=== PATIENT | male | born 1975 | race African-American/Black ===

== ENCOUNTER 2021-12-06 12:26 | Emergency (ER) | payer BC, OTHER ==
--- OUTSIDE RECORDS SUMMARY | 2021-12-06 12:30 | XMS REPORT | Continuity of Care Document ---
:1975 Author Organization [facility] t Address [address] [place] [id number] Care Team Providers Name Role Phone Pcp, Patient Does Not Have A Primary Care Physician [id number] CHRETIEN_F Attending Clinician Unavailable JOSE CRUZ Attending Clinician Unavailable Bhavani Wheeler Attending Clinician [phone] Jhoan Watts RN Attending Clinician Unavailable SCHALAURA_Russell Attending Clinician Unavailable Reena Stevenson Attending Clinician [phone] Naresh Sales MD Attending Clinician Maria Teresa Ricci Attending Clinician CHRETIEN_F Admitting Clinician Unavailable WATERS_Beverly Admitting Clinician Unavailable SCHALAURA_Russell Admitting Clinician Unavailable Payers Payer Name Policy Type Policy Number Effective Date Expiration Date Beverly rhoades AETNA O [id number] 2017 00:00:00 [place] [id number] 2021 00[place]00 [place] [id number] 2020 00:00:00 Problems This patient has no known problems. Allergies, Adverse Reactions, Alerts Allergy Allergy Status Severity Reaction(s) Onset Inactive Treating Comm ents Source Name Type Date Date Clinician NO KNOWN Drug Active Univers ALLERGIE Class ity of S [facility] Social History Social Habit Start Date Stop Date Quantity Comments Source History SDOH University o f Alcohol Frequency [place] [facility] History SDOH University o f Alcohol Std [place] [facility] Drinks Branch History SDOH University o f Alcohol Binge [place] [facility] Exposure to Not sure University SARS-CoV-2 [place] [facility] (event) Branch Alcohol intake 2020-01-08 2020-01-08 Current drinker of Un iversity of 00:00:00 00:00:00 alcohol (finding) [facility] edical [place] Alcohol Comment 2015-02-28 2015-02-28 occasionally Univers ity of 00:00:00 00:00:00 [facility] Tobacco use and 2015-02-28 2015-02-28 Current user Univers ity of exposure 00:00:00 00:00:00 [facility] Sex Ass[birth year] At [birth year] Universit y of 00:00:00 00:00:00 [facility] Smoking Status Start Date Stop Date Source Never smoker [facility] Medications Ordered Filled Start Stop Current Ordering Indication Dosage Frequency Signature Comments Components Source Medication Medication Date Date Medication? Clinician (SIG) Name Name HYDROcodone 2019-03 1{tbl} 1 tablet, Univers -acetaminop 0-13 10-13 Oral, ity of hen (NORCO 20:15: 19:11 ONCE, 1 Marcelino as 5) 5-325 mg 00 :00 dose, Tue Med ical tablet 1 01/06/20 Branch tablet at 1515, ALISE clindamycin 2019-03 450mg 450 mg, U nivers (CLEOCIN 0-13 10-13 Oral, ity of HCL) 20:15: 19:12 ONCE, 1 [place] capsule 450 00 :00 dose, Tue Med ical mg 01/06/20 Branch at 1515, ALISE
Re ason for Anti-Infec tive: Documented Infection< br>Documen yelena Infection Site: Skin / Soft Tissue
Duration of Therapy: Other (see Comments)< br>Restric yelena use approved by: ADC PROVIDER traMADoL 50 2019-03 Yes [id number] 50mg Take 1 Univ ers mg tablet 0-13 tablet by ity o f 00:00: mouth [place] 00 every 6 Medical (six) Branch hours as needed for Pain (scale 4-6). Indication s: acute pain traMADoL 50 2019-03 Yes [id number] 50mg Take 1 Univ ers mg tablet 0-13 tablet by ity o f 00:00: mouth [place] 00 every 6 Medical (six) Branch hours as needed for Pain (scale 4-6). Indication s: acute pain traMADoL 50 2019-03 Yes [id number] 50mg Take 1 Univ ers mg tablet 0-13 tablet by ity o f 00:00: mouth [place] 00 every 6 Medical (six) Branch hours as needed for Pain (scale 4-6). Indication s: acute pain clindamycin 2019-03- No [id number] 450mg Take 3 Univers 150 mg 0-13 10-24 capsules ity of capsule 00:00: 04:59 by mouth 3 Marcelino as 00 :00 (three) Medical times Branch daily for 10 days. clindamycin 2019-03- No [id number] 450mg Take 3 Univers 150 mg 0-13 10-24 capsules ity of capsule 00:00: 04:59 by mouth 3 Marcel[place] as 00 :00 (three) Medical times Branch daily for 10 days. glipiZIDE 5 2017-03 Yes glipizide U nivers mg tablet 1-20 5 mg ity of 19:32: tablet [place] 36 Take 1 Medical tablet Branch twice a day by oral route as directed for 30 days. lisinopril 2017-03 Yes lisinopril U nivers 20 mg 1-20 20 mg ity of tablet 19:32: tablet [place] 36 Take 1 Medical tablet Branch twice a day by oral route as directed for 30 days. glipiZIDE 5 2017-03 Yes glipizide U nivers mg tablet 1-20 5 mg ity of 19:32: tablet [place] 36 Take 1 Medical tablet Branch twice a day by oral route as directed for 30 days. lisinopril 2017-03 Yes lisinopril U nivers 20 mg 1-20 20 mg ity of tablet 19:32: tablet [place] 36 Take 1 Medical tablet Branch twice a day by oral route as directed for 30 days. lisinopril 2017-03 Yes lisinopril U nivers 20 mg 1-20 20 mg ity of tablet 13:32: tablet [place] 36 Take 1 Medical tablet Branch twice a day by oral route as directed for 30 days. glipiZIDE 5 2017-03 Yes glipizide U nivers mg tablet 1-20 5 mg ity of 13:32: tablet [place] 36 Take 1 Medical tablet Branch twice a day by oral route as directed for 30 days. methylPREDN 2017-03 Yes 84mg Take 21 Uni vers ISolone 1-20 tablets by ity of (MEDROL, 00:00: mouth [place] AIDA,) 4 mg 00 SEE-INSTRU Med ical tablets CTIONS. Branch follow package directions methylPREDN 2017-03 Yes 84mg Take 21 Uni vers ISolone 1-20 tablets by ity of (MEDROL, 00:00: mouth [place] AIDA,) 4 mg 00 SEE-INSTRU Med ical tablets CTIONS. Branch follow package directions methylPREDN 2017-03 Yes 84mg Take 21 Uni vers ISolone 1-20 tablets by ity of (MEDROL, 00:00: mouth [place] AIDA,) 4 mg 00 SEE-INSTRU Med ical tablets CTIONS. Branch follow package directions Vital Signs Vital Name Observation Time Observation Value Comments Source Systolic blood 2020-01-08 14:33:00 149 mm[facility]Hg[facility] 2020-01-08 14:33:00 93 mm[Hg] Unive [facility] Heart rate 2020-01-08 14:33:00 72 /min [facility] Body temperature 2020-01-08 14:33:00 36.56 [facility] Respiratory rate 2020-01-08 14:33:00 18 /min [facility] Body weight 2020-01-08 14:33:00 99.338 kg [facility] BMI 2020-01-08 14:33:00 35.89 kg/m2 [facility] Oxygen saturation in 2020-01-08 14:33:00 98 /min [facility] Arterial blood by [facility] Pulse oximetry Branch Systolic blood 2020-01-06 19:14:54 150 mm[Hg] [facility] Diastolic blood 2020-01-06 19:14:54 99 mm[Hg] [facility] 2020-01-06 19:14:54 94 /min [facility] Body temperature 2020-01-06 19:14:54 37.11 [facility] Respiratory rate 2020-01-06 19:14:54 17 /min [facility] Oxygen saturation in 2020-01-06 19:14:54 98 /min University Arterial blood by [facility] Pulse oximetry Branch Body weight 2020-01-06 18:05:00 99.338 kg [facility] BMI 2020-01-06 18:05:00 35.89 kg/m2 [facility] Procedures Procedure Date / Time Performed Performing Clinician [facility] e CONSENT/REFUSAL FOR 2020-01-08 14:24:24 [facility] AND Name Medical Branch TREATMENT NOTICE OF PRIVACY 2020-01-06 17:52:23 Doctor Unassigned, [facility] Name Medical Branch Encounters Start End Encounter Admission Attending Care Care Encounter Source Date/Time Date/Time Type Type Clinicians Facility Department ID 2021-01-21 Emergency [facility] [id number] Univers 23:06:10 [facility] 2021-01-21 Emergency [facility] [id number] Univers 22:40:56 [facility] 2021-11-02 2021-11-02 Outpatient CHRETIEN_F [facility] [id number] [place] 00:00:00 00:00:00 [id number] 2021-10-16 2021-10-16 Outpatient WATERS_S [facility] [id number] [place] 00:00:00 00:00:00 724 [facility] 2021-10-14 2021-10-14 Outpatient WATERS_S [facility] [id number] [place] 04:59:00 04:59:00 722 [facility] 2021-07-01 2021-07-01 Outpatient W[facility]ERS_S [facility] [id number] [place] 10:52:00 10:52:00 408 [facility] 2021-07-01 2021-07-01 [id number] 00:00:00 00:00:00 Bhavani [id number] 2021-07-01 2021-07-01 [facility] [id number] 00:00:00 00:00:00 Bhavain [id number] 2021-05-21 2021-05-21 Nurse HINA Watts [id number] Univers 00:00:00 00:00:00 Triage Jhoan CHILDRESS [id number] [facility] [id number] Marcelino as [phone] [place] [address] Branch 2021-05-19 2021-05-19 Outpatient W[facility]ERS[facility]S [facility] [id number] [place] 12:03:00 12:03:00 224 [facility] 2020-11-16 2020-11-16 Outpatient [facility] [id number] [place] 11:50:00 11:50:00 _L 824 [facility] 2020-11-16 2020-11-16 Outpatient [facility] [id number] 00:00:00 00:00:00 , Reena [id number] Mary [id number] 2020-08-30 2020-08-30 Outpatient [facility] [id number] [place] 08:15:00 08:15:00 _L 806 [facility] 2020-08-30 2020-08-30 Outpatient [facility] [id number] [place] 08:15:00 08:15:00 _L 823 [facility] 2020-08-12 2020-08-12 Outpatient [facility] [id number] [place] 10:49:00 10:49:00 _L 520 [facility] 2020-08-12 2020-08-12 Outpatient [facility] [id number] 00:00:00 00:00:00 , Reena [id number] Mary [id number] 2020-08-12 2020-08-12 Outpatient [facility] [id number] 00:00:00 00:00:00 , Reena [id number] Mary [id number] 2020-04-19 2020-04-19 Outpatient [facility] [id number] [place] 11:54:00 11:54:00 _L 125 [facility] 2020-04-19 2020-04-19 Outpatient [facility] [id number] 00:00:00 00:00:00 , Reena [id number] Mary [id number] 2020-04-15 2020-04-15 Outpatient [facility] 63 [place] 03:30:00 03:30:00 _L 121 [facility] 2020-04-08 2020-04-08 [place] [id number] [place] 02:32:00 02:32:00 _L 114 [facility] 2020-04-08 2020-04-08 Outpatient [facility] [id number] 00:00:00 00:00:00 , Reena [id number] Mary [id number] 2020-02-12 2020-02-12 Outpatient [place] [id number] [place] 09:51:00 09:51:00 _L 228 [facility] 2020-02-12 2020-02-12 Outpatient [facility] 63 [place] 09:51:00 09:51:00 _L 104 [facility] 2020-02-12 2020-02-12 Outpatient [facility] 63 [place] 09:51:00 09:51:00 _L 107 [facility] 2020-01-08 2020-01-08 Emergency Sales [email or web address]] [id number] Univers 09:36:00 10:20:00 Naresh Grewal [id number] i ty of [place] [id number] [facility] [id number] [place] [address] Branch 2020-01-06 2020-01-06 [facility] [id number] Univers 13:06:00 14:28:00 Maria Teresa Grewal [id number] i bruce Guillermo [id number] [facility] [phone] [place] [address] Branch Results This patient has no known results.
[2021-12-06] MEDS ORDERED: NA CHLORIDE 0.9% 1,000 ML ONE (13:25)
[2021-12-06 13:37] LABS: Arterial Blood Carboxyhemoglob 0.9 % (0-1.5); Blood Gas Oxyhemoglobin 78.3 % (94-97); Blood O2 Saturation 80.1 % (92-98.5)
[2021-12-06 13:58] LABS: Absolute Lymphocytes (CBC) 2.8 K/uL (0.7-4.9); Hematocrit 42.8 % (39.6-49.0); Lymphocytes % 31.5 % (15.3-44.8); MCV 89.2 fL (80-100); MPV 7.7 fL (7.6-11.3); RBC Red Blood Cell Count 4.79 M/uL (4.33-5.43)
[2021-12-06 14:12] LABS: SARS-CoV-2 Antigen Rapid Res Negative (Negative)
[2021-12-06 14:15] LABS: ALT/SGPT 31 U/L (12-78); AST/SGOT 12 U/L (15-37); Albumin 3.9 g/dL (3.4-5.0); Alkaline Phosphatase 93 U/L (45-117); BUN Blood Urea Nitrogen 14 mg/dL (7-18); Bicarbonate 25 mmol/L (21-32); Bilirubin Total 0.3 mg/dL (0.2-1.0); Glomerular Filtration Rate 69 ml/min (=/>90); Potassium 4.1 mmol/L (3.5-5.1); Protein, Total 8.2 g/dL (6.4-8.2); Sodium Level 132 mmol/L (136-145)
[2021-12-06 14:17] LABS: Bilirubin Direct < 0.1 mg/dL (0-0.2); NT PRO-BNP < 5 pg/mL (<125)
[2021-12-06 14:19] LABS: Glucose Level 457 mg/dL (74-106)
[2021-12-06] MEDS ORDERED: INSULIN -REGULAR HUMAN 50 UNIT/0.5 ML ML ONE (14:55)
--- NOTE | 2021-12-06 15:48 | RAD REPORT ---
EXAM DESCRIPTION: RAD - Chest Single View - 12/06/2021 3:36 pm CLINICAL HISTORY: CHEST PAIN Chest pain. COMPARISON: <Comparisons> FINDINGS: Portable technique limits examination quality. The lungs are grossly clear. The heart is normal in size. No displaced fractures. IMPRESSION: No acute intrathoracic process suspected.
--- NOTE | 2021-12-06 19:02 | ER ---
Nurse's Notes [facility] Name: Glenroy Bermudez Age: 46 yrs Sex: Male : 1975 Arrival Date: 12/06/2021 Time: 12:37 Bed 23 Private MD: Diagnosis: Chest pain, unspecified;Hyperglycemia, unspecified Presentation: 12/06 12:59 Chief complaint: Patient states: My blood sugar has been high all day without me even bm7 eating it has been over 400. Then when I was walking to the car I started having chest pain. Coronavirus screen: At this time, the client does not indicate any symptoms associated with coronavirus-19. Ebola Screen: No symptoms or risks identified at this time. Initial Sepsis Screen: Does the patient meet any 2 criteria? HR > 90 bpm. Does the patient have a suspected source of infection? No. Patient's initial sepsis screen is negative. Risk Assessment: Do you want to hurt yourself or someone else? Patient reports no desire to harm self or others. Onset of symptoms was December 06, 2021 at 12:00. 12:59 Method Of Arrival: Ambulatory bm7 12:59 Acuity: AMANDA 2 bm7 Triage Assessment: 13:00 General: Appears in no apparent distress. comfortable, Behavior is cooperative, bm7 appropriate for age, anxious. Pain: Complains of pain in chest. EENT: No deficits noted. No signs and/or symptoms were reported regarding the EENT system. Neuro: No deficits noted. Cardiovascular: Heart tones S1 S2 present Chest pain is described as vague, quality is pressure. Respiratory: No deficits noted. GI: No deficits noted. No signs and/or symptoms were reported involving the gastrointestinal system. : No deficits noted. No signs and/or symptoms were reported regarding the genitourinary system. Derm: No deficits noted. No signs and/or symptoms reported regarding the dermatologic system. Musculoskeletal: No deficits noted. No signs and/or symptoms reported regarding the musculoskeletal system. Historical: - Allergies: 13:00 No Known Allergies; bm7 - Home Meds: 13:00 glipizide 10 mg Oral tab 1 tab once daily [Active]; lisinopril 10 mg Oral tab 1 tab bm7 once daily [Active]; - PMHx: 13:00 Hypertensive disorder; Diabetes mellitus; bm7 - PSHx: 13:00 None; bm7 - Immunization history:: Adult Immunizations up to date, Client reports having NOT received the Covid vaccine. - Social history:: Smoking status: Patient denies any tobacco usage or history of. Screenin:28 Abuse screen: Denies threats or abuse. Nutritional screening: No deficits noted. ap3 Tuberculosis screening: No symptoms or risk factors identified. Fall Risk No fall in past 12 months (0 pts). No secondary diagnosis (0 pts). IV access (20 points). Ambulatory Aid- None/Bed Rest/Nurse Assist (0 pts). Gait- Normal/Bed Rest/Wheelchair (0 pts) Mental Status- Oriented to own ability (0 pts). Total Chappell Fall Scale indicates No Risk (0-24 pts). Assessment: 13:27 General: Appears comfortable, Behavior is calm, cooperative, appropriate for age. Pain: ap3 Denies pain. Neuro: Level of Consciousness is awake, alert, obeys commands, Oriented to person, place, time, situation, Appropriate for age. Cardiovascular: Reports patient states that previous chest pain has since resolved Patient's skin is warm and dry. Respiratory: Airway is patent Respiratory effort is even, unlabored, Respiratory pattern is regular, symmetrical. 14:51 Reassessment: Patient and/or family updated on plan of care and expected duration. Pain ap3 level reassessed. Patient is alert, oriented x 3, equal unlabored respirations, skin warm/dry/pink. 17:27 Reassessment: Patient and/or family updated on plan of care and expected duration. Pain ap3 level reassessed. Patient is alert, oriented x 3, equal unlabored respirations, skin warm/dry/pink. Vital Signs: 12:58 BP 146 / 94; Pulse 114; Resp 16; Temp 98.9(TE); Pulse Ox 100% on R/A; Weight 102.06 kg bm7 (R); Height 5 ft. 6 in. (167.64 cm); Pain 4/10; 14:51 BP 143 / 86; Pulse 95; Resp 16; Pulse Ox 99% on R/A; ap3 15:42 BP 138 / 90; Pulse 98; Pulse Ox 97% on R/A; ap3 16:27 BP 134 / 88; Pulse 89; Pulse Ox 98% on R/A; ap3 17:27 BP 131 / 85; Pulse 85; Pulse Ox 98% on R/A; ap3 18:28 BP 127 / 94; Pulse 83; Pulse Ox 100% on R/A; ap3 19:00 BP 127 / 94; Pulse 82; Pulse Ox 99% on R/A; ap3 12:58 Body Mass Index 36.32 (102.06 kg, 167.64 cm) bm7 ED Course: 12:37 Patient arrived in ED. am2 12:58 Arm band placed on right wrist. EKG completed in triage. Results shown to MD. bm7 13:00 Triage completed. bm7 13:02 Maxim Verdin PA is PHCP. [facility] 13:03 Jhoan Wyman MD is Attending Physician. m 13:27 Inserted saline lock: 20 gauge in right antecubital area, using aseptic technique. ap3 Blood collected. 13:29 Patient has correct armband on for positive identification. Placed in gown. Bed in low ap3 position. Call light in reach. Side rails up X2. Pulse ox on. NIBP on. Door closed. Noise minimized. 15:38 XRAY Chest (1 view) In Process Unspecified. EDMS 16:48 Fariba Chandler, STEPHANY is Primary Nurse. ap3 19:01 Bobby Barry MD is Referral Physician. [facility] 19:01 Hany Johnson MD is Referral Physician. [facility] 19:01 Rad Connor DO is Referral Physician. [facility] 19:16 No provider procedures requiring assistance completed. IV discontinued, intact, as6 bleeding controlled, No redness/swelling at site. Pressure dressing applied. Administered Medications: 13:27 Drug: NS 0.9% 1000 ml Route: IV; Rate: 1 bolus; Site: right antecubital; ap3 19:19 Follow up: Response: No adverse reaction; IV Status: Completed infusion; IV Intake: as6 1000ml 15:01 Drug: Insulin Regular Human 10 units {Co-Signature: [email or web address] (Angie Pino RN).} Route: IVP; ap3 Site: right antecubital; 19:19 Follow up: Response: No adverse reaction as6 Medication: 13:40 VIS not applicable for this client. ap3 Point of Care Testing: Blood Glucose: 12:58 Blood Glucose: 439 mg/dL; bm7 Ranges: Intake: 19:19 IV: 1000ml; Total: 1000ml. as6 Outcome: 19:01 Discharge ordered by . ibrahima 19:16 Discharged to home ambulatory. as6 19:16 Condition: stable 19:16 Discharge instructions given to patient, Instructed on discharge instructions, follow up and referral plans. Demonstrated understanding of instructions, follow-up care. 19:18 Patient left the ED. as6 Signatures: Dispatcher [employer] EDMS Maxim Verdin PA PA jmm Moreno, Amanda am2 Fariba Chandler, RN RN ap3 Alesia Tellez, RN RN bm7 Pancho Cooper, RN RN as6 Angie Pino RN [email or web address]
--- NOTE | 2021-12-06 19:03 | EDPHYS ---
Physician Documentation [facility] Name: Glenroy Bermudez Age: 46 yrs Sex: Male : 1975 Arrival Date: 12/06/2021 Time: 12:37 Bed 23 Private MD: CADEN Physician Jhoan Wyman HPI: 12/06 13:10 This 46 yrs old Black Male presents to ER via Ambulatory with complaints of High Blood jmm Sugar - >400. 13:10 This is a 46-year-old male with history of diabetes mellitus and hypertension the jmm presents emerged part with complaints of chest pain, palpitations beginning earlier today. Denies shortness of breath. Patient has had difficulty controlling his blood glucose due to lack of continuity of care by his PCP. Denies diarrhea.. Historical: - Allergies: 13:00 No Known Allergies; bm7 - Home Meds: 13:00 glipizide 10 mg Oral tab 1 tab once daily [Active]; lisinopril 10 mg Oral tab 1 tab bm7 once daily [Active]; - PMHx: 13:00 Hypertensive disorder; Diabetes mellitus; bm7 - PSHx: 13:00 None; bm7 - Immunization history:: Adult Immunizations up to date, Client reports having NOT received the Covid vaccine. - Social history:: Smoking status: Patient denies any tobacco usage or history of. ROS: 13:10 Constitutional: Negative for fever, chills, and weight loss, Respiratory: Negative for jmm shortness of breath, cough, wheezing, and pleuritic chest pain. 13:10 Cardiovascular: Positive for chest pain. 13:10 All other systems are negative. Exam: 13:10 Constitutional: This is a well developed, well nourished patient who is awake, alert, jmm and in no acute distress. Head/Face: atraumatic. Eyes: EOMI, no conjunctival erythema appreciated ENT: Moist Mucus Membranes Neck: Trachea midline, Supple Chest/axilla: Normal chest wall appearance and motion. Cardiovascular: Regular rate and rhythm. No edema appreciated Respiratory: Normal respirations, no respiratory distress appreciated Abdomen/GI: Non distended Back: Normal ROM Skin: General appearance color normal MS/ Extremity: Moves all extremities, no obvious deformities appreciated, no edema noted to the lower extremities Neuro: Awake and alert Psych: Behavior is normal, Mood is normal, Patient is cooperative and pleasant Vital Signs: 12:58 BP 146 / 94; Pulse 114; Resp 16; Temp 98.9(TE); Pulse Ox 100% on R/A; Weight 102.06 kg bm7 (R); Height 5 ft. 6 in. (167.64 cm); Pain 4/10; 14:51 BP 143 / 86; Pulse 95; Resp 16; Pulse Ox 99% on R/A; ap3 15:42 BP 138 / 90; Pulse 98; Pulse Ox 97% on R/A; ap3 16:27 BP 134 / 88; Pulse 89; Pulse Ox 98% on R/A; ap3 17:27 BP 131 / 85; Pulse 85; Pulse Ox 98% on R/A; ap3 18:28 BP 127 / 94; Pulse 83; Pulse Ox 100% on R/A; ap3 19:00 BP 127 / 94; Pulse 82; Pulse Ox 99% on R/A; ap3 12:58 Body Mass Index 36.32 (102.06 kg, 167.64 cm) bm7 MDM: 13:10 Patient medically screened. [facility] 18:59 Data reviewed: vital signs, nurses notes. Counseling: I had a detailed discussion with ibrahima the patient and/or guardian regarding: the historical points, exam findings, and any diagnostic results supporting the discharge/admit diagnosis, lab results, radiology results, the need for outpatient follow up, to return to the emergency department if symptoms worsen or persist or if there are any questions or concerns that arise at home. ED course: Patient states feeling much better. Patient is advised to follow-up with his PCP and otherwise given strict return precautions. Patient understood and agrees plan of care.. 12/06 13:10 Order name: Basic Metabolic Panel; Complete Time: 14:31 [facility] 12/06 13:10 Order name: CBC with Diff; Complete Time: 14:05 [facility] 12/06 13:10 Order name: LFT's; Complete Time: 14:31 [facility] 12/06 13:10 Order name: Magnesium; Complete Time: 14:31 [facility] 12/06 13:10 Order name: NT PRO-BNP; Complete Time: 14:31 [facility] 12/06 13:10 Order name: PT-INR; Complete Time: 14:05 [facility] 12/06 13:10 Order name: Troponin HS; Complete Time: 14:31 [facility] 12/06 13:10 Order name: XRAY Chest (1 view); Complete Time: 15:52 [facility] 12/06 13:11 Order name: SARS RAPID; Complete Time: 14:17 [facility] 12/06 13:11 Order name: ABG; Complete Time: 13:53 [facility] 12/06 13:28 Order name: Glucose, Ancillary Testing; Complete Time: 13:30 [facility] 12/06 16:22 Order name: Glucose, Ancillary Testing; Complete Time: 16:22 [facility] 12/06 16:55 Order name: Troponin High Sensitivity; Complete Time: 18:05 [facility] 12/06 13:10 Order name: EKG; Complete Time: 13:12 [facility] 12/06 13:10 Order name: Cardiac monitoring; Complete Time: 19:19 [facility] 12/06 13:10 Order name: EKG - Nurse/Tech; Complete Time: 13:13 [facility] 12/06 13:10 Order name: IV Saline Lock; Complete Time: 13:27 [facility] 12/06 13:10 Order name: Labs collected and sent; Complete Time: 13:27 [facility] 12/06 13:10 Order name: O2 Per Protocol; Complete Time: 13:13 [facility] 12/06 13:10 Order name: O2 Sat Monitoring; Complete Time: 13:13 [facility] Administered Medications: 13:27 Drug: NS 0.9% 1000 ml Route: IV; Rate: 1 bolus; Site: right antecubital; ap3 19:19 Follow up: Response: No adverse reaction; IV Status: Completed infusion; IV Intake: as6 1000ml 15:01 Drug: Insulin Regular Human 10 units {Co-Signature: jh5 (Angie Pino RN).} Route: IVP; ap3 Site: right antecubital; 19:19 Follow up: Response: No adverse reaction as6 Point of Care Testing: Blood Glucose: 12:58 Blood Glucose: 439 mg/dL; bm7 Ranges: Critical Glucose Levels:Adult <50 mg/dl or >400 mg/dl <40 mg/dl or >180 mg/dl Disposition Summary: 12/06/21 19:01 Discharge Ordered Location: Home [facility] Condition: Stable [facility] Diagnosis - Chest pain, unspecified jmm - Hyperglycemia, unspecified jmm Followup: [facility] - With: Bobby Barry MD - When: 2 - 3 days - Reason: Recheck today's complaints, Continuance of care, Re-evaluation by your physician Followup: [facility] - With: Hany Johnson MD - When: 2 - 3 days - Reason: Recheck today's complaints, Continuance of care, Re-evaluation by your physician Followup: [facility] - With: Rad Connor DO - When: 2 - 3 days - Reason: Recheck today's complaints, Continuance of care, Re-evaluation by your physician Discharge Instructions: - Discharge Summary Sheet jmm - Nonspecific Chest Pain, Adult jmm - Hyperglycemia jm Forms: - Medication Reconciliation Form [facility] - Thank You Letter [facility] - Antibiotic Education [facility] - Prescription Opioid Use [facility] - Work release form as6 Signatures: Dispatcher [employer] EDMaxim Rodriguez PA PA jmm Prokisch, Amanda, RN RN ap3 Alesia Tellez RN RN bm7 Pancho Cooper RN as6 Angie Pino RN jh5
[2021-12-07 07:15] VITALS: TEMP 98.9
[2021-12-07 07:41] VITALS: BP 127/94
[2021-12-07 07:46] VITALS: O2SAT 99
--- NOTE | 2021-12-07 17:11 | EKG ---
Test Date: 2021-12-06 Test Time: 13:11:27 [employer] Project Manager: JACKSON MEASUREMENT RESULTS: Intervals: Rate: 108 CA: 160 QRSD: 72 QT: 308 QTc: 412 [place]: P: 46 CA: 160 QRS: 70 T: 7 INTERPRETIVE STATEMENTS: Sinus tachycardia Nonspecific ST and T wave abnormality Abnormal ECG Compared to ECG 01/28/2010 19:28:25 ST (T wave) deviation now present Sinus rhythm no longer present Electronically Signed On 12-07-21 17:06:57 CDT by sEtuardo Lopez
== END 2021-12-06 19:18 | disposition home or self-care (01) ==
LOC: ER 12:26
DX: R07.9 Chest pain, unspecified (principal); E11.65 Type 2 diabetes mellitus with hyperglycemia; I10 Essential (primary) hypertension; Z20.822 Contact with and (suspected) exposure to COVID-19
CPT/HCPCS: 96361; 93005; 85025; 80048; 36415; 83735; 85610; 82947 ×2; 80076; 84484 ×2; 83880; 71045; 82805; 96374; 99284; 87811; J1815; J7030